=== PATIENT | male | born 1960 | race Caucasian/White ===

== ENCOUNTER 2024-01-21 23:31 | Emergency (ER) | payer MEDICAID ==
[~2024-01-21] VITALS: Ht 177.8 cm; Wt 108.2 kg
[2024-01-21 23:35] VITALS: PULSE 95
[2024-01-22] MEDS: TETanus/Pertussis (Acell)/Diphther VAC/PF (Tdap-Adult) 0.5ml syringe IMVAC ONE (00:21)
[2024-01-22] MEDS: cephalexin 250mg capsule PO ONE (00:25)
[2024-01-22] MEDS: LIDOcaine/epinephrine/tetracaine TOPICAL sol 3 ML syringe TOP ONE (00:27)
[2024-01-22] MEDS ORDERED: bacitracin 15gm ointment TP ONE (01:30)
[2024-01-22] MEDS ORDERED: CEPH-585 PO (01:33)
[2024-01-22 01:38] VITALS: BP 161/76; RESP 18; TEMP 99.8; O2SAT 98
== END 2024-01-22 01:41 | disposition home or self-care (01) ==
LOC: ER 23:31
DX: S31.31XA Laceration without foreign body of scrotum and testes, initial encounter (principal); W01.0XXA Fall on same level from slipping, tripping and stumbling without subsequent striking against object, initial encounter; Y93.89 Activity, other specified; Y92.89 Other specified places as the place of occurrence of the external cause; Y99.8 Other external cause status
CPT/HCPCS: 12001; 90471; 90715; 99283; J3490; A6449